=== PATIENT | male | born 1975 | race Caucasian/White ===

== ENCOUNTER 2022-12-11 22:51 | Emergency (ER) | payer BC | END 2022-12-11 23:56 | disposition home or self-care (01) | LOC: MERGE 22:51 → DL.ED 22:51 | DX: I83.892 Varicose veins of left lower extremity with other complications (principal); F17.210 Nicotine dependence, cigarettes, uncomplicated; E11.9 Type 2 diabetes mellitus without complications | CPT/HCPCS: 99283 ==